=== PATIENT | female | born 1985 ===

== ENCOUNTER → 2019-10-01 | Outpatient (CLI) | payer OTHER ==
--- NOTE | 2019-10-01 10:48 | RADIOLOGY REPORT (SQ) ---
EXAM DESCRIPTION: DUPLEX ART/MARY FLOW COMPLETE COMPLETED DATE/TIME: 10/01/2019 7:53 am REASON FOR STUDY: MIMI (I70.1) COMPARISON: None. TECHNIQUE: Realtime and static grayscale images acquired. Selected color Doppler, velocities and spe ctral images recorded. LIMITATIONS: None. FINDINGS: RIGHT KIDNEY: RENAL ARTERY VELOCITIES: Origin 190 cm/sec. Mid 132 cm/sec. [place] 103 cm/sec. Segmental artery roly ocity 56 cm/sec. RENAL VEIN: Color doppler flow present, patent. VELOCITY RATIO: 1.1. Normal waveforms. KIDNEY: Normal in size measuring 11.9 cm. No significant pathology. LEFT KIDNEY: RENAL ARTERY VELOCITIES:Origin 121 cm/sec. Mid 113 cm/sec. Hilum 69 cm/sec . Segmental artery [place] 69 cm/sec. RENAL VEIN: Color doppler flow present, patent. VELOCITY RATIO: 0.7. Normal waveforms. KIDNEY: Normal in size measuring 11.2 cm. No significant pathology. BLADDER: Unremarkable. Ureteral jets visualized. OTHER: Aortic velocity of 94 cm/sec. IMPRESSION: NO DOPPLER EVIDENCE OF HEMODYNAMICALLY SIGNIFICANT RENAL ARTERY STENOSIS. COMMENT: NORMAL RENAL ARTERY/AORTA VELOCITY RATIO IS LESS THAN OR EQUAL TO 3.5. TECHNICAL DOCUMENTATION: JOB ID: [id number] [employer]- All Rights Reserved Reading location - IP/workstation name: [email or web address]
== END ==
LOC: RAD 07:07
PROVIDERS: ATTEND Family Medicine
DX: I70.1 Atherosclerosis of renal artery (principal)
CPT/HCPCS: 93975